=== PATIENT | female | born 2000 | race Caucasian/White ===

== ENCOUNTER 2023-04-02 00:10 | Inpatient (IN) | payer OTHER, SELFPAY ==
[2023-04-01 23:35] VITALS: BP 134/80; PULSE 68; TEMP 37.4
[2023-04-01 23:43] VITALS: BMI 28.7
[2023-04-02] VITALS (42 sets, daily range): BP systolic 99–142; BP diastolic 53–79; PULSE 60–114; RESP 16; TEMP 36.7–37.3; O2SAT 88–100
[2023-04-02 00:09] LABS: ROM Internal Control Test YES-OK TO RESULT pt. (Internal QC)
[2023-04-02 00:10] LABS: ROM Patient Test POSITIVE (Negative); Record Kit Lot#, ROM+ K1409
--- NOTE | 2023-04-02 00:19 | HP.PCM.OB_ITS ---
HPI - General General Date of Admission: 04/02/23 HPI Narrative EDE GONZALES, is a 23 F who presents at 40.4 with spontaneous rupture of membranes around 10:00 pm. has been uncomplicated. GBS negative. Maternal Data Information ANIKET Calculator Estimated Delivery Date Method Current WG Current Estimate 03/29/23 Manual 40w 4d PFSH PFSH Home Medications vit no.95-ferrous fumarate 28 mg-folic acid 800 mcg tablet () 1 tab PO DAILY 04/01/23 [History Last Taken 04/01/23 07:00] ROS Eyes Eyes: Denies blurry vision Cardiovascular Cardiovascular: Reports none; Denies chest pain at rest, chest pain with activity or dizziness Respiratory/Chest Respiratory/Chest: Denies cough or dyspnea Gastrointestinal Gastrointestinal: Reports none and other; Denies diarrhea or vomiting Genitourinary Genitourinary: Denies dysuria Musculoskeletal Musculoskeletal: Reports none Integumentary Integumentary: Reports none; Denies rash Neurologic Neurologic: Denies dizziness, headache(s) or other visual disturbances Psychiatric Psychiatric: Reports none Vital Signs Vital Signs Vital Signs: 04/01/23 23:35 04/01/23 23:35 04/01/23 23:35 Temperature Temperature Source Temporal Pulse Rate 68 Blood Pressure 134/80 H BP Systolic 134 BP Diastolic 80 04/01/23 23:35 Temperature 99.3 F H Temperature Source Pulse Rate Blood Pressure BP Systolic BP Diastolic Weight Weight: 156 lb 15.506 oz Body Mass Index (BMI) 28.7 Physical Exam Const alert, oriented x3 and no apparent distress General Appearance: cooperative Orientation / Consciousness: awake Exam Limitations: no limitations HEENT normocephalic Head and Scalp: normal to inspection Eyes General Eye: normal appearance of both eyes Neck full ROM and no lymphadenopathy Lymph Lymphatic: no lymphadenopathy noted Chest inspection of chest normal Resp normal respiratory effort, normal air movement and clear to auscultation bilaterally Effort and Inspection: able to speak in complete sentences and symmetric chest movement Cardio regular rate and regular rhythm GI normal to inspection, nondistended, normoactive bowel sounds Manual OB Exam: presentation cephalic Amniotic Fluid: clear amniotic fluid Back/Spine normal ROM Extremity full ROM and no calf tenderness Skin no rashes or lesions noted General Skin Exam: no breakdown Neuro oriented x3 and CN's II-XII intact bilaterally Psych mental status grossly normal and thought process normal Labs Labs Labs: No Data to Display Assessment & Plan (1) 40 weeks gestation of : (2) Spontaneous rupture of amniotic membranes: (3) Left ovarian cyst: PLAN: Plan ROM plus - POSITIVE Admit to labor and delivery Routine labs CE 3.5/70/-2 Pain medications/ epidural when indicated GBS negative Left ovarian cyst to be followed up on after delivery per [facility] records Dr. Arevalo notified of admission and is collaborating physician
[2023-04-02 01:11] LABS: Absolute Lymphocyte Count 2.62 X10^3/uL (0.83-4.51); Absolute Neutrophil Count 8.1 X10^3/uL (2.0-7.7); Basophil# 0.02 X10^3/uL; Basophil% 0.2 % (0-1); Eosinophil# 0.24 X10^3/uL; Eosinophils% 2.1 % (0-5); Hematocrit 38.4 % (37-47); Hemoglobin 13.3 g/dL (12.0-15.0); Lymphocyte # 2.62 X10^3/ul (0.83-4.51); Lymphocyte % 22.5 % (19-41); Mean Corp Hgb Conc 34.6 g/dL (32-36); Mean Corpuscular Volume 92.3 fL (81-99); Mean Platelet Vol. 10.7 fl (6.2-12.0); Monocyte# 0.65 X10^3/uL; Monocyte% 5.6 % (0-10); NRBC Flagged by Analyzer 0 % (0-5); Neutrophil # 8.09 X10^3/uL (2.7-7.7); Neutrophil % 69.2 % (47-70); Platelet Count 190 K/mm3 (150-450); RBC Distribution Width CV 12.6 % (11.6-14.6); RBC Distribution Width SD 42.5 fl (35.1-43.9); Red Blood Count 4.16 M/mm3 (4.2-5.4); White Blood Count 11.7 K/mm3 (4.4-11.0)
[2023-04-02 02:21] LABS: Syphilis Antibodies Non-reactive
[2023-04-02] MEDS: Oxytocin 15 Units/NS 250ml 15 UNITS/250 ML IV.SOLN 2 UNITS IV (02:45)
[2023-04-02] MEDS: Lactated Ringers 1,000 ML 50 ML IV (02:45)
[2023-04-02] MEDS: LACTATED RINGERS 500 ML 999 ML IV (03:44)
[2023-04-02] MEDS: fentaNYL-bupivacaine (epidural) 100 ML BAG EPIDURAL ×2 (04:45→11:18)
--- NOTE | 2023-04-02 07:59 | PCM.PN.BLA ---
Progress Note Patient seen at bedside. Comfortable with epidural. Denies any pain. Assessment & Plan Assessment/Plan (1) Spontaneous rupture of amniotic membranes: (2) 40 weeks gestation of : PLAN: Plan CE / Pitocin IV at 2 mu/min NST reactive Continue present plan of care Anticipate
[2023-04-02] MEDS: Lactated Ringers 1,000 ML 200 ML IV (09:40)
--- NOTE | 2023-04-02 13:52 | OP.PCM_ITS ---
Assessment & Plan (1) Vaginal delivery: (2) Lactating mother: (3) Periurethral laceration, delivered, current hospitalization: Maternal Data Information ANIKET Calculator Estimated Delivery Date Method Current WG Current Estimate 03/29/23 Manual 40w 4d Vaginal Delivery Maternal Presentation Maternal Presentation: Active Labor Type of Induction: Pitocin Operative Information Date of Procedure: 04/02/23 Pre-Operative Diagnosis: SROM Post-Operative Diagnosis: , periurethral laceration Surgery / Procedure Performed: Spontaneous Vaginal Delivery Type of Anesthesia: Epidural Estimated Blood Loss: 300 ml Time of Delivery: 13:17 Findings Description of Procedure: Progressed to complete with urge to push. Epidural for pain management. of viable male over periurethral laceration. Trailing meconium. APGARS 8,9 respectively. Infant head delivered with body immediately forthcoming. CANx1, delivered through. Placed on maternal abdomen, strong cry. Mouth and nares suctioned for secretions. Pitocin started for active 3rd stage management. Cord doubly clamped and cut by FOB after pulsations ceased, delayed cord clamping. Placenta delivered intact via lea, 3 vessel cord intact. Perineum inspected and revealed periurethral laceration. Repaired with 3.0 vicryl rapide and epi dural. Fundus firm and hemostasis achieved. EBL 300ml. Mom and baby stable, planning to breastfeed. Family bonding well. notified of delivery. COLT Garn[place] present for delivery. Presentation: Vertex Amniotic Membrane Rupture Type: Spontaneous Amniotic Fluid Description: Clear Placental Delivery Description: Spontaneous Placenta Disposition: [facility] Cord Vessel Description: 3 Vessels Cord Entanglement: Around neck x 1, loose Infant A Gender: Male (1 minute): 8 (5 minute): 9 Delayed Cord Clamping: Yes Post Vaginal Delivery Medications Given After Delivery: IV Pitocin Episiotomy Description: None Laceration: Periurethral Extnsion/lac Complication Complications: None
[2023-04-02] MEDS: Oxytocin 15 Units/NS 250ml 15 UNITS/250 ML IV.SOLN 83 UNITS IV (14:00)
[2023-04-02] MEDS: Ibuprofen 600 MG Tablet PO (17:24)
[2023-04-03] VITALS (11 sets, daily range): BP systolic 99–131; BP diastolic 48–74; PULSE 64–82; RESP 14–18; TEMP 36.4–37; O2SAT 96–99
--- NOTE | 2023-04-03 01:00 | NURSING ---
Report received from Sabrina ROTHMAN, taking over pt care at this time.
[2023-04-03 05:39] LABS: Hematocrit 29.1 % (37-47); Hemoglobin 9.8 g/dL (12.0-15.0); Mean Corp Hgb Conc 33.7 g/dL (32-36); Mean Corpuscular Hgb 31.6 pg (27.0-32.0); Mean Corpuscular Volume 93.9 fL (81-99); Mean Platelet Vol. 10.2 fl (6.2-12.0); Platelet Count 142 K/mm3 (150-450); RBC Distribution Width CV 12.8 % (11.6-14.6); RBC Distribution Width SD 44.1 fl (35.1-43.9)
--- NOTE | 2023-04-03 05:54 | PCM.PN.OB ---
Subjective Subjective Doing well per patient and nursing staff. Ambulating and taking PO without difficulty. Voiding and passing flatus. Pain controlled. , services for assistance. Denies headache, visual changes, chest pain, shortness of breath, leg pain or increased bleeding. Lochia normal. Objective Data Objective Data Vital Signs: Vital Signs Temp Pulse Resp BP Pulse Ox O2 Del Method 98.6 F 64 18 99/48 L 98 Room Air 04/03/23 03:00 04/03/23 03:05 04/03/23 03:00 04/03/23 03:05 04/03/23 03:04 04/03/23 03:00 Oxygen Delivery Method Room Air Weight: 156 lb 15.506 oz Body Mass Index (BMI) 28.7 Intake & Output: Intake and Output for Last 24 Hours 04/01/23 04/02/23 04/03/23 23:59 23:59 23:59 Intake Total 2493.83 / 2493.83 Output Total 1625 / 1625 Balance 868.83 / 868.83 Lab / Micro Data 04/03/23 05:30 Labs: Laboratory Results - last 24 hr 04/03/23 05:30: WBC 16.0 H, RBC 3.10 L, Hgb 9.8 L, Hct 29.1 L, MCV 93.9, MCH 31.6, MCHC 33.7, RDW Std Deviation 44.1 H, RDW Coeff of Izabel 12.8, Plt Count 142 L, MPV 10.2 ROS Constitutional Constitutional: Reports systems reviewed and no addt'l complaints, except as documented; Denies headache(s) Eyes Eyes: Denies acute decrease in peripheral vision, blurry vision or change in vision ENT HEENT: Reports systems reviewed and no addt'l complaints, except as documented Cardiovascular Cardiovascular: Denies chest pain or dizziness Respiratory/Chest Respiratory/Chest: Denies cough, dyspnea, dyspnea on exertion, shortness of breath at rest or shortness of breath with exertion Gastrointestinal Gastrointestinal: Denies abdominal pain, diarrhea, nausea or vomiting Genitourinary Genitourinary: Denies abdominal discomfort Musculoskeletal Musculoskeletal: Denies limited range of motion Integumentary Integumentary: Reports systems reviewed and no addt'l complaints, except as documented Neurologic Neurologic: Reports systems reviewed and no addt'l complaints, except as documented Psychiatric Psychiatric: Reports systems reviewed and no addt'l complaints, except as documented Endocrine Endocrinology: Reports systems reviewed and no addt'l complaints, except as documented Hematologic/Lymphatic Hematologic/Lymphatic: Reports systems reviewed and no addt'l complaints, except as documented Allergic/Immunologic Allergic/Immunologic: Reports systems reviewed and no addt'l complaints, except as documented Physical Exam Const alert and oriented x3 General Appearance: cooperative Orientation / Consciousness: awake, oriented to person, oriented to place and oriented to time Exam Limitations: no limitations HEENT normocephalic Head and Scalp: normal to inspection, normocephalic and atraumatic Face and Sinus: normal facial exam Eyes General Eye: normal appearance of both eyes Neck full ROM Chest Chest: symmetrical chest wall rise Resp normal respiratory effort and normal air movement Auscultation: clear to auscultation bilaterally Cardio regular rate, regular rhythm, S1 normal heart sound, S2 normal heart sound, no murmurs, no rub, no gallops and no clicks GI normal to inspection, nondistended, normoactive bowel sounds and non-tender appearance of the vagina normal Bladder / Kidney Exam: no CVA tenderness Back/Spine normal ROM Extremity normal to inspection and full ROM Skin no rashes or lesions noted Neuro oriented x3, CN's II-XII intact bilaterally and moves all extremities Sensorium / Orientation: awake, alert and oriented to person Motor Exam: clonus absent Assessment & Plan (1) Periurethral laceration, delivered, current hospitalization: (2) Lactating mother: (3) Vaginal delivery: (4) Acute blood loss anemia: PLAN: Plan 1) PPD#1 2) Pain management 3) 4) Hgb13.3 to 9.8. Will give IV iron infusion. Repeat CBC in am 5) Planning D/C home tomorrow.
[2023-04-03] MEDS: Iron Sucrose Complex 200 MG in 0.9% Normal Saline (100mL Bag) 100 ML 220 MG IV (09:38)
[2023-04-03] MEDS: 0.9% Saline Lock 10 ML Syringe IV (09:42)
[2023-04-04] VITALS (7 sets, daily range): BP systolic 105–120; BP diastolic 66–74; PULSE 57–67; RESP 14–16; TEMP 36.4–37.1; O2SAT 98–99
[2023-04-04 04:49] LABS: Absolute Neutrophil Count 11.3 X10^3/uL (2.0-7.7); Basophil# 0.06 X10^3/uL; Basophil% 0.4 % (0-1); Eosinophil# 0.33 X10^3/uL; Eosinophils% 2.1 % (0-5); Hemoglobin 10.5 g/dL (12.0-15.0); Lymphocyte % 19.3 % (19-41); Mean Corpuscular Volume 94.3 fL (81-99); Mean Platelet Vol. 10.5 fl (6.2-12.0); Monocyte# 0.76 X10^3/uL; Monocyte% 4.9 % (0-10); NRBC Flagged by Analyzer 0 % (0-5); Neutrophil # 11.33 X10^3/uL (2.7-7.7); Neutrophil % 72.8 % (47-70); Platelet Count 172 K/mm3 (150-450); RBC Distribution Width CV 12.8 % (11.6-14.6); RBC Distribution Width SD 44.4 fl (35.1-43.9); Red Blood Count 3.18 M/mm3 (4.2-5.4); White Blood Count 15.6 K/mm3 (4.4-11.0)
--- NOTE | 2023-04-04 10:51 | PN.OBGYN_ITS ---
Subjective Subjective Doing well per patient and nursing staff. Ambulating and taking PO without difficulty. Voiding and passing flatus. Pain controlled. with some difficulty, supplementing, services for assistance. Denies headache, visual changes, chest pain, shortness of breath, leg pain or increased bleeding. Lochia normal. Objective Data Objective Data Vital Signs: Vital Signs Temp Pulse Resp BP Pulse Ox O2 Del Method 98.8 F 61 14 118/74 98 Room Air 04/04/23 08:35 04/04/23 08:42 04/04/23 08:35 04/04/23 08:42 04/04/23 08:35 04/04/23 08:35 Oxygen Delivery Method Room Air Weight: 156 lb 15.506 oz Body Mass Index (BMI) 28.7 Intake & Output: Intake and Output for Last 24 Hours 04/02/23 04/03/23 04/04/23 23:59 23:59 23:59 Intake Total 2493.83 / 2493.83 110 / 110 Output Total 1625 / 1625 Balance 868.83 / 868.83 110 / 110 Lab / Micro Data 04/04/23 04:25 Labs: Laboratory Results - last 24 hr 04/04/23 04:25: WBC 15.6 H, RBC 3.18 L, Hgb 10.5 L, Hct 30.0 L, MCV 94.3, MCH 33.0 H, MCHC 35.0, RDW Std Deviation 44.4 H, RDW Coeff of Izabel 12.8, Plt Count 172, MPV 10.5, Immature Gran % (Auto) 0.500, Neut % (Auto) 72.8 H, Lymph % (Auto) 19.3, [place] % (Auto) 4.9, Eos % (Auto) 2.1, Baso % (Auto) 0.4, Absolute Neuts (auto) 11.3 H, Absolute Lymphs (auto) 3.00, Nucleated RBC % 0 ROS Constitutional Constitutional: Reports systems reviewed and no addt'l complaints, except as documented; Denies headache(s) Eyes Eyes: Denies acute decrease in peripheral vision, blurry vision or change in vision ENT HEENT: Reports systems reviewed and no addt'l complaints, except as documented Cardiovascular Cardiovascular: Denies chest pain or dizziness Respiratory/Chest Respiratory/Chest: Denies cough, dyspnea, dyspnea on exertion, shortness of breath at rest or shortness of breath with exertion Gastrointestinal Gastrointestinal: Denies abdominal pain, diarrhea, nausea or vomiting Genitourinary Genitourinary: Denies abdominal discomfort Musculoskeletal Musculoskeletal: Denies limited range of motion Integumentary Integumentary: Reports systems reviewed and no addt'l complaints, except as documented Neurologic Neurologic: Reports systems reviewed and no addt'l complaints, except as documented Psychiatric Psychiatric: Reports systems reviewed and no addt'l complaints, except as documented Endocrine Endocrinology: Reports systems reviewed and no addt'l complaints, except as documented Hematologic/Lymphatic Hematologic/Lymphatic: Reports systems reviewed and no addt'l complaints, except as documented Allergic/Immunologic Allergic/Immunologic: Reports systems reviewed and no addt'l complaints, except as documented Physical Exam Const alert and oriented x3 General Appearance: cooperative Orientation / Consciousness: awake, oriented to person, oriented to place and oriented to time Exam Limitations: no limitations HEENT normocephalic Head and Scalp: normal to inspection, normocephalic and atraumatic Face and Sinus: normal facial exam Eyes General Eye: normal appearance of both eyes Neck full ROM Chest Chest: symmetrical chest wall rise Nipple/Areola: nipple abnormal tenderness (painful, erythema, and fissures from . No bleeding. ) Resp normal respiratory effort and normal air movement Auscultation: clear to auscultation bilaterally Cardio regular rate, regular rhythm, S1 normal heart sound, S2 normal heart sound, no murmurs, no rub, no gallops and no clicks GI normal to inspection, nondistended, normoactive bowel sounds and non-tender GI Narrative: fundus firm 2 below U appearance of the vagina normal Narrative: normal lochia Bladder / Kidney Exam: no CVA tenderness Back/Spine normal ROM Extremity normal to inspection and full ROM Skin no rashes or lesions noted Neuro oriented x3 and moves all extremities Sensorium / Orientation: awake, alert and oriented to person Motor Exam: clonus absent Assessment & Plan (1) Acute blood loss anemia: (2) Periurethral laceration, delivered, current hospitalization: (3) Lactating mother: PLAN: Plan 1) Routine PPD #2 2) Acute blood loss anemia. Iron infusion yesterday. Hgb 9.8-10.5, asymptomatic 3) Pain management 4) services, will follow up outpatient and have feeding plan in place. APNO sent to pharmacy for breast/nipple pain. 5) Follow up in 2 weeks and 6 weeks 6) D/C home
--- NOTE | 2023-04-04 11:01 | PCM.DC.SUM ---
Providers Date of Admission: 04/02/23 Primary Care Physician: Bobbi Primary Care Phys Reason For Visit: VAGINAL DELIVERY Diagnosis Discharge Diagnosis (1) Acute blood loss anemia: Status: Acute Code(s): D62 - Acute posthemorrhagic anemia (2) Periurethral laceration, delivered, current hospitalization: Status: Acute Code(s): O71.5 - Other obstetric injury to pelvic organs (3) Lactating mother: Status: Acute Code(s): Z39.1 - Encounter for care and examination of lactating mother Plan 1) Routine PPD #2 2) Acute blood loss anemia. Iron infusion yesterday. Hgb 9.8-10.5, asymptomatic 3) Pain management 4) services, will follow up outpatient and have feeding plan in place. APNO sent to pharmacy for breast/nipple pain. 5) Follow up in 2 weeks and 6 weeks 6) D/C home Medications at Discharge Home Medications vit no.95-ferrous fumarate 28 mg-folic acid 800 mcg tablet () 1 tab PO DAILY 04/01/23 acetaminophen 500 mg tablet 1,000 mg (2 x 500 mg) PO Q6H PRN PRN Pain 1-10 Or Fever #0 tabs 04/04/23 ferrous sulfate 325 mg (65 mg iron) tablet 325 mg PO BID 30 days #60 tabs 04/04/23 ibuprofen 600 mg tablet 600 mg PO Q6H PRN PRN Pain Score 1-3 #0 tabs 04/04/23 Hospital Course Summary of Care Provided Minutes Spent on Discharge: 15 Weight / BMI Weight Weight: 156 lb 15.506 oz Body Mass Index (BMI) 28.7 ABG / Lab / Microbiology Data 04/04/23 04:25 Laboratory: Laboratory Results - last 24 hr 04/04/23 04:25: WBC 15.6 H, RBC 3.18 L, Hgb 10.5 L, Hct 30.0 L, MCV 94.3, MCH 33.0 H, MCHC 35.0, RDW Std Deviation 44.4 H, RDW Coeff of Izabel 12.8, Plt Count 172, MPV 10.5, Immature Gran % (Auto) 0.500, Neut % (Auto) 72.8 H, Lymph % (Auto) 19.3, [place] % (Auto) 4.9, Eos % (Auto) 2.1, Baso % (Auto) 0.4, Absolute Neuts (auto) 11.3 H, Absolute Lymphs (auto) 3.00, Nucleated RBC % 0 Meaningful Use Info Meaningful Use Diagnoses (Choose all that apply): None applicable Discharge Plan Admission Admit Date/Time: 04/02/23 00:10 Primary Reason for Your Visit: Vaginal Delivery Attending Provider: Suad Craig Primary Care Provider: Care Physician,No Primary Instructions Patient Instructions: After a Vaginal , Perineum Care After Childbirth Discharge Orders/Prescriptions Prescriptions: New acetaminophen 500 mg Tablet 1,000 mg PO Q6H PRN PRN (Reason: Pain 1-10 Or Fever) Qty: 0 0RF ibuprofen 600 mg Tablet 600 mg PO Q6H PRN PRN (Reason: Pain Score 1-3) Qty: 0 0RF ferrous sulfate 325 mg (65 mg iron) tablet 325 mg PO BID 30 Days Qty: 60 0RF Continued PNV cmb#95-ferrous fumarate-FA [] 28 mg iron- 800 mcg tablet 1 tab PO DAILY Referrals / Follow Up: Suad Craig CNM [Med Staff - Adv Practice Prof] - (Follow up in 2 weeks and 6 weeks) Care Physician,No Primary [Primary Care Provider] - Disposition Disposition (needs filled in before D/C Order can be placed): Home, Self Care
== END 2023-04-04 17:25 | disposition home or self-care (01) | DRG 806 ==
LOC: WPOUT 00:12 → WP 00:12
PROVIDERS: Admitting Provider Advanced Practice Midwife; Referring Provider Advanced Practice Midwife; Visit Provider Advanced Practice Midwife
DX: O71.5 Other obstetric injury to pelvic organs (principal); Z37.0 Single live birth; D62 Acute posthemorrhagic anemia; N83.202 Unspecified ovarian cyst, left side; Z3A.40 40 weeks gestation of pregnancy; O69.81X0 Labor and delivery complicated by cord around neck, without compression, not applicable or unspecified; O34.83 Maternal care for other abnormalities of pelvic organs, third trimester
CPT/HCPCS: 59025; 59050; 84112; 85025; 85027; 86780; 86850; 86900; 86901; 99221; J1756; J7120; A4216; G0378

== ENCOUNTER 2024-06-01 04:30 | Inpatient (IN) | payer OTHER, SELFPAY ==
[2024-06-01] VITALS (41 sets, daily range): BP systolic 103–130; BP diastolic 54–79; PULSE 54–77; RESP 14–17; TEMP 36.4–37.2; O2SAT 78–100; BMI 30.1
[2024-06-01] MEDS: Lactated Ringers 1,000 ML 999 ML IV (04:50)
[2024-06-01 05:07] LABS: Absolute Lymphocyte Count 2.05 X10^3/uL (0.83-4.51); Absolute Neutrophil Count 4.8 X10^3/uL (2.0-7.7); Basophil# 0.04 X10^3/uL; Basophil% 0.5 % (0-1); Eosinophils% 1.3 % (0-5); Hematocrit 33.6 % (37-47); Hemoglobin 11.1 g/dL (12.0-15.0); Lymphocyte # 2.05 X10^3/ul (0.83-4.51); Lymphocyte % 27.4 % (19-41); Mean Corpuscular Hgb 27.4 pg (27.0-32.0); Mean Platelet Vol. 10.8 fl (6.2-12.0); Monocyte# 0.51 X10^3/uL; Monocyte% 6.8 % (0-10); NRBC Flagged by Analyzer 0 % (0-5); Neutrophil # 4.75 X10^3/uL (2.7-7.7); Neutrophil % 63.6 % (47-70); Platelet Count 202 K/mm3 (150-450); RBC Distribution Width CV 13.6 % (11.6-14.6); RBC Distribution Width SD 41.1 fl (35.1-43.9); Red Blood Count 4.05 M/mm3 (4.2-5.4); White Blood Count 7.5 K/mm3 (4.4-11.0)
[2024-06-01 05:40] LABS: Syphilis Antibodies Non-reactive
[2024-06-01] MEDS: Lactated Ringers 1,000 ML 50 ML IV (05:51)
[2024-06-01] MEDS: fentaNYL-bupivacaine (epidural) 100 ML BAG EPIDURAL (06:24)
--- NOTE | 2024-06-01 08:01 | HP.PCM.OB_ITS ---
HPI - General General Date of Admission: 06/01/24 HPI Narrative EDE GONZALES, is a 24 F at 40.3 who presents in spontaneous labor. Maternal Data Information ANIKET Calculator Estimated Delivery Date Method Current WG Current Estimate 05/29/24 Manual 40w 3d PFSH PFSH Home Medications ?Medication ?Instructions ?Recorded ?Last Taken ?Type vit no.95-ferrous 1 tab PO DAILY 04/01/23 05/31/24 History fumarate 28 mg-folic acid 800 mcg tablet () acetaminophen 500 mg tablet 1,000 mg (2 x 500 mg) PO Q6H PRN 04/04/23 05/16/24 Rx PRN Pain 1-10 Or Fever #0 tabs ibuprofen 600 mg tablet 600 mg PO Q6H PRN PRN Pain Score 04/04/23 Unknown Rx 1-3 #0 tabs Allergy/AdvReac Type Severity Reaction Status Date / Time No Known Allergies Allergy Verified 06/01/24 05:03 Surgical History [place] teeth extracted Social History Smoking Status: Never smoker History 1 Elective abortions Hx Para 1 Spontaneous abortions Hx # Term Pregnancies Ectopic pregnancies Hx # Pregnancies Multiple births # of living children 1 NST FHR Rate Baby A Baseline: 140 Variability:: Moderate Accelerations:: 15 x 15 Decelerations:: None NST Reactive:: Yes FHR Category:: Category I Uterine Activity:: TOCO reading every 2-3 minutes ROS Eyes Eyes: Denies blurry vision, change in vision or spots in vision ENT HEENT: Denies dizziness or headache(s) Cardiovascular Cardiovascular: Denies abdominal pain, chest pain or dyspnea Respiratory/Chest Respiratory/Chest: Denies cough, dyspnea, shortness of breath at rest or shortness of breath with exertion Gastrointestinal Gastrointestinal: Denies abdominal pain, diarrhea or vomiting Genitourinary Genitourinary: Denies change in urinary stream, difficulty urinating or dysuria Musculoskeletal Musculoskeletal: Reports none Integumentary Integumentary: Denies rash Neurologic Neurologic: Denies dizziness, headache(s), memory loss or weakness Psychiatric Psychiatric: Reports none Vital Signs Vital Signs Vital Signs: 06/01/24 03:09 06/01/24 03:09 06/01/24 03:09 Temperature Temperature Source Temporal Pulse Rate 62 Respiratory Rate Blood Pressure 117/77 BP Systolic 117 BP Diastolic 77 Pulse Ox 06/01/24 03:09 06/01/24 03:09 06/01/24 03:09 Temperature 98.1 F Temperature Source Pulse Rate Respiratory Rate 16 Blood Pressure BP Systolic BP Diastolic Pulse Ox 98 06/01/24 04:58 06/01/24 04:58 06/01/24 04:58 Temperature Temperature Source Pulse Rate 68 Respiratory Rate Blood Pressure BP Systolic BP Diastolic Pulse Ox 78 97 06/01/24 04:59 06/01/24 04:59 06/01/24 05:00 Temperature Temperature Source Temporal Pulse Rate 67 Respiratory Rate Blood Pressure 116/70 BP Systolic 116 BP Diastolic 70 Pulse Ox 06/01/24 05:00 06/01/24 05:00 06/01/24 05:55 Temperature 98.8 F Temperature Source Pulse Rate 64 Respiratory Rate 16 Blood Pressure BP Systolic BP Diastolic Pulse Ox 06/01/24 05:55 06/01/24 05:55 06/01/24 05:55 Temperature Temperature Source Temporal Pulse Rate Respiratory Rate 16 Blood Pressure BP Systolic BP Diastolic Pulse Ox 98 06/01/24 05:55 06/01/24 05:56 06/01/24 05:56 Temperature 98.8 F Temperature Source Pulse Rate 63 Respiratory Rate Blood Pressure 127/75 H BP Systolic 127 BP Diastolic 75 Pulse Ox 06/01/24 06:10 06/01/24 06:10 06/01/24 06:15 Temperature Temperature Source Pulse Rate 76 67 Respiratory Rate Blood Pressure BP Systolic BP Diastolic Pulse Ox 100 06/01/24 06:15 06/01/24 06:17 06/01/24 06:17 Temperature Temperature Source Pulse Rate 64 Respiratory Rate Blood Pressure 130/69 H BP Systolic 130 BP Diastolic 69 Pulse Ox 100 06/01/24 06:17 06/01/24 06:20 06/01/24 06:20 Temperature Temperature Source Pulse Rate 69 Respiratory Rate 16 Blood Pressure BP Systolic BP Diastolic Pulse Ox 100 06/01/24 06:21 06/01/24 06:21 06/01/24 06:21 Temperature Temperature Source Pulse Rate 75 Respiratory Rate 16 Blood Pressure 123/67 H BP Systolic 123 BP Diastolic 67 Pulse Ox 06/01/24 06:23 06/01/24 06:23 06/01/24 06:25 Temperature Temperature Source Pulse Rate 72 77 Respiratory Rate Blood Pressure BP Systolic BP Diastolic Pulse Ox 92 06/01/24 06:25 06/01/24 06:27 06/01/24 06:27 Temperature Temperature Source Pulse Rate 74 Respiratory Rate Blood Pressure 120/67 BP Systolic 120 BP Diastolic 67 Pulse Ox 100 06/01/24 06:27 06/01/24 06:30 06/01/24 06:30 Temperature Temperature Source Pulse Rate 71 Respiratory Rate 16 Blood Pressure BP Systolic BP Diastolic Pulse Ox 100 06/01/24 06:33 06/01/24 06:33 06/01/24 06:33 Temperature Temperature Source Pulse Rate 61 Respiratory Rate 16 Blood Pressure 126/67 H BP Systolic 126 BP Diastolic 67 Pulse Ox 06/01/24 06:35 06/01/24 06:35 06/01/24 06:38 Temperature Temperature Source Pulse Rate 67 Respiratory Rate Blood Pressure 121/70 H BP Systolic 121 BP Diastolic 70 Pulse Ox 100 06/01/24 06:38 06/01/24 06:38 06/01/24 06:40 Temperature Temperature Source Pulse Rate 64 60 Respiratory Rate 16 Blood Pressure BP Systolic BP Diastolic Pulse Ox 06/01/24 06:40 06/01/24 06:41 06/01/24 06:41 Temperature Temperature Source Pulse Rate 61 Respiratory Rate Blood Pressure 114/71 BP Systolic 114 BP Diastolic 71 Pulse Ox 100 06/01/24 06:41 06/01/24 06:45 06/01/24 06:45 Temperature Temperature Source Pulse Rate 63 Respiratory Rate 16 Blood Pressure BP Systolic BP Diastolic Pulse Ox 100 06/01/24 07:18 06/01/24 07:18 06/01/24 07:18 Temperature 97.6 F L Temperature Source Temporal Pulse Rate Respiratory Rate 16 Blood Pressure BP Systolic BP Diastolic Pulse Ox 06/01/24 07:19 06/01/24 07:19 06/01/24 07:19 Temperature Temperature Source Pulse Rate 64 63 Respiratory Rate Blood Pressure 118/69 BP Systolic 118 BP Diastolic 69 Pulse Ox 06/01/24 07:19 Temperature Temperature Source Pulse Rate Respiratory Rate Blood Pressure BP Systolic BP Diastolic Pulse Ox 100 Weight Weight: 164 lb 14.492 oz Body Mass Index (BMI) 30.1 Physical Exam Const alert, oriented x3 and no apparent distress General Appearance: cooperative Orientation / Consciousness: awake Exam Limitations: no limitations HEENT normocephalic Head and Scalp: normal to inspection Eyes General Eye: normal appearance of both eyes Neck full ROM and no lymphadenopathy Lymph Lymphatic: no lymphadenopathy noted Chest inspection of chest normal Resp normal respiratory effort, normal air movement and clear to auscultation bilaterally Effort and Inspection: able to speak in complete sentences and symmetric chest movement Cardio regular rate and regular rhythm GI normal to inspection, nondistended, normoactive bowel sounds Manual OB Exam: presentation cephalic Back/Spine normal ROM Extremity full ROM and no calf tenderness Skin no rashes or lesions noted General Skin Exam: no breakdown Neuro oriented x3 and CN's II-XII intact bilaterally Psych mental status grossly normal and thought process normal Labs Labs Labs: Blood Type A POSITIVE Antibody Screen NEGATIVE Hct 33.6 % (37-47) L Hgb 11.1 g/dL (12.0-15.0) L Syphilis Total Ab Non-reactive Rhogam given: No GBS negative Assessment & Plan (1) Spontaneous onset of labor: (2) Short interval between pregnancies affecting , antepartum: (3) 40 weeks gestation of : PLAN: Plan CE /-2 AROm for small amount of bloody/clear fluid Comfortable with epidural Benadryl 25 mg IV x 1 now for left eye swelling (post epidural) NST reactive Start Pitocin 2mu/min/ IV and increase per policy Anticipate
[2024-06-01] MEDS: DiphenhydrAMINE 50 MG/ML Syringe 25 MG IV (08:24)
[2024-06-01] MEDS: Oxytocin 15 Units/NS 250ml 15 UNITS/250 ML IV.SOLN 2 UNITS IV (09:24)
[2024-06-01] MEDS: Lactated Ringers 1,000 ML 200 ML IV (09:27)
--- NOTE | 2024-06-01 12:38 | OB.VAGDELI_ITS ---
Assessment & Plan (1) (spontaneous vaginal delivery): (2) Laceration, obstetrical, second degree: (3) Care and examination of lactating mother: Maternal Data Information ANIKET Calculator Estimated Delivery Date Method Current WG Current Estimate 05/29/24 Manual 40w 3d Doctor Who Attended Delivery: Acacia Myers Vaginal Delivery Maternal Presentation Maternal Presentation: Active Labor Maternal Presentation: that arrived in spontaneous onset of labor Type of Induction: Pitocin (Augmentation) Vaginal Delivery Information Procedure Performed: Spontaneous Vaginal Delivery Date of Procedure: 06/01/24 Pre-Procedure Diagnosis: Term gestation, Spontaneous labor Post-Procedure Diagnosis: , Live female infant Type of anesthesia: Epidural Estimated Blood Loss: 150 Time of Delivery: 12:20 Findings Description of procedure: Patient progressed to complete dilation. With good maternal effort, head delivered followed by anterior shoulder and remainder of infant body without any force, delay, or traction. Loose CAN easily reduced. Vigorous female was delivered atraumatically and placed on maternal abdomen. Pitocin IV started for active management of the third stage of labor. 3 vessel cord clamped and cut after delay and placed immediately skin to skin with patient. Placenta delivered spontaneously and intact. A second degree laceration was repaired in usual fashion using 3-0 Vicryl Rapid. Hemostasis obtained. Vaginal sweep performed. Fundus is firm 2 below U and bleeding is hemostatic. Sponge and sharps counts correct. Patient and infant bonding well at this time. Dr. Arevalo notified of delivery. Routine post orders placed. Presentation: Vertex Amniotic Membrane Rupture Type: Artificial Amniotic Fluid Description: Clear and Other (Terminal meconium) Placental Delivery Description: Spontaneous Placenta Disposition: [facility] Specimen collected: No Cord Vessel Description: 3 Vessels Cord Entanglement: Around neck x 1, loose Nuchal Cord Compression: Without compression Infant A Gender: Female (1 minute): 7 (5 minute): 8 Delayed Cord Clamping: Yes Panel [employer] primary [employer] principal: No Post Vaginal Deli Medications given after delivery: IV Pitocin Episiotomy Description: None Laceration: 2nd degree Complication Complications: No
[2024-06-01] MEDS: Oxytocin 15 Units/NS 250ml 15 UNITS/250 ML IV.SOLN 83 UNITS IV (12:50)
[2024-06-01] MEDS: Benzocaine/Lanolin/Aloe Vera 85 GM Spray 1 SPRAY TOPICAL (14:51)
[2024-06-01] MEDS: Naproxen 500 MG Tablet PO (14:54)
[2024-06-02 04:00] VITALS: BP 128/54; PULSE 73; RESP 17; TEMP 36.4; O2SAT 99
[2024-06-02] MEDS: Naproxen 500 MG Tablet PO (05:03)
--- NOTE | 2024-06-02 07:03 | DS.PCM_ITS ---
Providers Date of Admission: 06/01/24 Primary Care Physician: Bobbi Primary Care Phys Reason For Visit: VAGINAL DELIVERY Diagnosis Discharge Diagnosis (1) (spontaneous vaginal delivery): Status: Acute Code(s): O80 - Encounter for full-term uncomplicated delivery (2) Laceration, obstetrical, second degree: Status: Acute Code(s): O70.1 - Second degree perineal laceration during delivery (3) Care and examination of lactating mother: Status: Acute Code(s): Z39.1 - Encounter for care and examination of lactating mother Plan PPD 1 support Routine orders Desires discharge home at 24 hours Medications at Discharge Home Medications vit no.95-ferrous fumarate 28 mg-folic acid 800 mcg tablet () 1 tab PO DAILY 04/01/23 acetaminophen 500 mg tablet 1,000 mg (2 x 500 mg) PO Q6H PRN PRN Pain 1-10 Or Fever #0 tabs 04/04/23 ibuprofen 600 mg tablet 600 mg PO Q6H PRN PRN Pain Score 1-3 #0 tabs 04/04/23 acetaminophen 500 mg tablet 1,000 mg (2 x 500 mg) PO Q6H PRN PRN Pain 1-10 Or Fever #0 tabs 06/02/24 naproxen 500 mg tablet 500 mg PO Q8H PRN PRN Pain Score 1-10 #0 tabs 06/02/24 Hospital Course Operations None Procedures None Summary of Care Provided Minutes Spent on Discharge: 15 Hospital Course: Patient had vaginal delivery. Hospital course was uneventful. Physical Exam Narrative Patient seen at bedside. Denies pain. Ambulating and voiding without difficulty. Lochia decreased. Desires discharge home today. Const alert and oriented x3 General Appearance: Negative for in distress HEENT normocephalic Eyes General Eye: normal appearance of both eyes Neck General: normal visual inspection Chest Chest: symmetrical chest wall rise Resp normal respiratory effort and normal air movement Effort and Inspection: symmetric chest movement; Negative for tachypneic Auscultation: clear to auscultation bilaterally Cardio regular rate and regular rhythm Peripheral Pulses: pulses 2+ throughout GI normal to inspection, nondistended, normoactive bowel sounds Narrative: Ice to perineum OB / External & Speculum: vaginal bleeding and other Lochia decreasing Uterus Palpation: uterus fundus firm (Below U) Extremity normal to inspection, full ROM and normal capillary refill Skin no rashes or lesions noted Neuro oriented x3, CN's II-XII intact bilaterally and gait normal Psych mental status grossly normal, thought process normal and activity/motor behavior normal Weight / BMI Weight Weight: 164 lb 14.492 oz Body Mass Index (BMI) 30.1 ABG / Lab / Microbiology Data 06/01/24 04:50 D/C Instructions Discharge Diet: No restrictions Discharge Activity: Return to Normal Activity, No Restrictions, May Drive, May Shower and May Take a Tub Bath (Warm water only. No bath salts, soaps, bubbles) May resume sexual activity in: 6-8 weeks Weight Bearing Status: Weight bearing as tolerated Call your doctor if you observe: Fever of 101 or Higher, Inability to urinate, Using more than 1 pad per hour, Shortness of breath, Dizziness, Chest pain, Calf discomfort and Uncontrolled pain DC O2, CPAP, BIPAP Needs Home O2 Discharge instructions: No Please Follow Up With: [facility] Adam GARZON When: 2 weeks in office or virtual Meaningful Use Info Meaningful Use Meaningful Use Diagnoses (Choose all that apply): None applicable Ischemic Stroke Statin Dosing Therapy Reference: STATIN DOSE THERAPY REFERENCE: * Patients > 75 years receive moderate or high dose statin therapy. * Patients 75 years or YOUNGER should receive HIGH intensity statin dose unless contraindicated. You will be required to document reason for non-treatment if statin daily dose does not meet guidelines. HIGH DOSE STATIN THERAPY DAILY Atorvastatin > than or = to 40 mg Rosuvastatin > than or = to 20 mg Amlodipine + Atorvastatin > than or = to 2.5/40 mg Ezetimibe + Simvastatin 10/80 mg Simvastatin 80mg Discharge Plan Admission Admit Date/Time: 06/01/24 04:30 Primary Reason for Your Visit: Labor and Delivery Attending Provider: Acacia Myers Primary Care Provider: Care Physician,Bobbi Primary Discharge Orders/Prescriptions Prescriptions: New acetaminophen 500 mg Tablet 1,000 mg PO Q6H PRN PRN (Reason: Pain 1-10 Or Fever) Qty: 0 0RF naproxen 500 mg Tablet 500 mg PO Q8H PRN PRN (Reason: Pain Score 1-10) Qty: 0 0RF Continued PNV cmb#95-ferrous fumarate-FA [] 28 mg iron- 800 mcg tablet 1 tab PO DAILY No Action acetaminophen 500 mg Tablet 1,000 mg PO Q6H PRN PRN (Reason: Pain 1-10 Or Fever) Qty: 0 0RF ibuprofen 600 mg Tablet 600 mg PO Q6H PRN PRN (Reason: Pain Score 1-3) Qty: 0 0RF Referrals / Follow Up: Acacia Myers CNM [Med Staff - [facility]] - Care Physician,No Primary [Primary Care Provider] - Disposition Disposition (needs filled in before D/C Order can be placed): Home, Self Care
[2024-06-02 09:34] VITALS: BP 104/62; PULSE 50; RESP 16; TEMP 36.6; O2SAT 98
== END 2024-06-02 14:45 | disposition home or self-care (01) | DRG 807 ==
LOC: WPOUT 04:33 → WP 04:33
PROVIDERS: Admitting Provider Obstetrics & Gynecology; Referring Provider Obstetrics & Gynecology; Visit Provider Advanced Practice Midwife
DX: O48.0 Post-term pregnancy (principal); Z37.0 Single live birth; O69.81X0 Labor and delivery complicated by cord around neck, without compression, not applicable or unspecified; O70.1 Second degree perineal laceration during delivery; Z3A.40 40 weeks gestation of pregnancy
CPT/HCPCS: 59025; 59050; 85025; 86780; 86850; 86900; 86901; 99221; G0378